=== PATIENT | female | born 1960 | race Asian ===

== ENCOUNTER → 2017-01-04 | Outpatient (CLI) | payer OTHER | LOC: BMCIMAGING 09:24 | PROVIDERS: ATTEND Internal Medicine | DX: R14.0 Abdominal distension (gaseous) (principal); R10.2 Pelvic and perineal pain; D25.9 Leiomyoma of uterus, unspecified; K76.0 Fatty (change of) liver, not elsewhere classified; K92.1 Melena; R93.421 Abnormal radiologic findings on diagnostic imaging of right kidney; Z78.0 Asymptomatic menopausal state ==

== ENCOUNTER 2018-02-21 09:28 | Emergency (ER) | payer OTHER ==
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
[2018-02-21] MEDS ORDERED: ONDANSETRON 4 MG/2 ML VIAL ONE ×2 (09:42→13:06)
[2018-02-21] MEDS ORDERED: ONDANSETRON 4 MG/2 ML VIAL IVP ONE ×2 (09:44→13:08)
[2018-02-21] MEDS ORDERED: HYDROmorphONE/DILAUDID 2 MG/ML INJ IVP ONE (10:35)
[2018-02-21] MEDS ORDERED: OXYCODONE/APAP 5/325 TAB PO ONE (12:56)
[2018-02-21 13:58] VITALS: BP 99/68
== END 2018-02-21 13:58 | disposition home or self-care (01) ==
LOC: EDUNIT#
DX: S42.212A Unspecified displaced fracture of surgical neck of left humerus, initial encounter for closed fracture (principal); V49.40XA Driver injured in collision with unspecified motor vehicles in traffic accident, initial encounter; Y92.410 Unspecified street and highway as the place of occurrence of the external cause; Y99.8 Other external cause status; Y93.89 Activity, other specified
CPT/HCPCS: 96374; A4565; J1170; J2270; J2405

== ENCOUNTER → 2018-02-27 | Outpatient (CLI) | payer OTHER | LOC: BMCIMAGING 16:39 | PROVIDERS: ATTEND Orthopaedic Surgery Hand Surgery | DX: S42.292D Other displaced fracture of upper end of left humerus, subsequent encounter for fracture with routine healing (principal) ==

== ENCOUNTER → 2018-03-07 | Outpatient (CLI) | payer OTHER | LOC: BMCIMAGING 08:05 | PROVIDERS: ATTEND Orthopaedic Surgery Hand Surgery | DX: S42.252D Displaced fracture of greater tuberosity of left humerus, subsequent encounter for fracture with routine healing (principal) ==

== ENCOUNTER → 2018-03-14 | Outpatient (CLI) | payer OTHER | LOC: BMCIMAGING 08:38 | PROVIDERS: ATTEND Orthopaedic Surgery Hand Surgery | DX: S42.215D Unspecified nondisplaced fracture of surgical neck of left humerus, subsequent encounter for fracture with routine healing (principal) ==

== ENCOUNTER → 2018-03-28 | Outpatient (CLI) | payer OTHER | LOC: BMCIMAGING 08:08 | PROVIDERS: ATTEND Orthopaedic Surgery Hand Surgery | DX: S42.292D Other displaced fracture of upper end of left humerus, subsequent encounter for fracture with routine healing (principal) ==

== ENCOUNTER → 2018-05-02 | Outpatient (CLI) | payer OTHER | LOC: BMCIMAGING 08:02 | PROVIDERS: ATTEND Orthopaedic Surgery Hand Surgery | DX: S42.292D Other displaced fracture of upper end of left humerus, subsequent encounter for fracture with routine healing (principal) ==